=== PATIENT | female | born 1930 | race Caucasian/White ===

== ENCOUNTER → 2016-12-29 | Outpatient (CLI) | payer MEDICARE, OTHER ==
[~2016-12-29] MED LIST: ASPIR 8181 MG PO; CALCIUM 600 +1 EAC4 PO; CHEWABLE MULTI1 EACH PO; CPAP; DITROPAN5 MG PO; FEOSOL325 MG PO; LOPRESSOR25 MG PO; MONOPRIL10 MG PO; NITROSTAT0.4 MG SL; PENICILLIN V P250 MG PO; PLAVIX75 MG PO; PRESERVISION A1 EAC2 PO; PROTONIX40 MG PO; SPIRIVA18 MCG INH; VITAMIN D1000 UNI1 PO; VYTORIN 10-401 EACH PO
== END | disposition disaster alternative care site (69) ==
LOC: LNHI 16:37
DX: I10 Essential (primary) hypertension (principal); I25.10 Atherosclerotic heart disease of native coronary artery without angina pectoris; I50.32 Chronic diastolic (congestive) heart failure; I48.1 Persistent atrial fibrillation

== ENCOUNTER → 2017-03-28 | Outpatient (CLI) | payer MEDICARE, OTHER ==
--- NOTE | ~2017-03-28 | ESTC ---
Cardiac Perfusion Imaging Demographics Patient Name ALLYSON Diaz Gender Female Patient Number [id number] Race Visit Number [id number] [place] [id number] Room Number Accession Number [id number] Height 61 inches Date of 1930 Weight 168 pounds MD Monika Vaca MD Interpreting VANNESSA - Vanessa Date of study 03/28/2017 Physician Manuelito Starks MD Supervising /MLP Moniak Baldwin NM Technologist Shira Vaca MD Ordering Physician Monika Vaca MD prior authorization technician Stress ECG Reading Monika Baldwin Nurse Mike Vaca MD knotter Procedure Type: Nuclear Stress Test:Cardiolite Stress Test Procedure Start time: 03/28/2017 09:40 Indications: Dyspnea with exertion. Risk Factors The patient risk factors include:prior PCI on 12/10/2014;obesity. Conclusions Impression ECG portion of lexiscan stress test is clinically negative for ischemia by diagnostic criteria. Myocardial perfusion imaging is essentially normal. The mild anterior wall perfusion defect is likely secondary to breast tissue attenuation. Clinical correlation recommended. Overall left ventricular systolic function was normal without regional wall motion abnormalities. TID ratio is 0.96 and LVEF is 80%. Stress Protocols Resting ECG SR with PVCs Pre-stress physical exam: Patient assessed by Dr Frank prior to testing. Stress Protocol:Pharmacologic Predicted HR: 132 bpm ECG Findings No ECG changes suggestive of ischemia. Arrhythmias No new rhythm abnormality. Symptoms Shortness of breath. Stress Interpretation Appropriate hemodynamic response to Lexiscan. No significant ST-T wave changes with Lexiscan. ECG portion is negative for ischemia by diagnostic criteria. Imaging Results Applied corrections - Motion correction applied High risk findings Summed scores - Summed stress score: 8 - Summed rest score: 2 - Summed difference score: 6 Stress ejection Ejection fraction:80 % EDV :121 ml ESV :24 ml Stroke volume :97 ml LV mass :149 gr Imaging Protocols Rest Stress Isotope:Tc99m Sestamibi IV Isotope: Tc99m Sestamibi IV Isotope dose:13.2 mCi Isotope dose:39.3 mCi Date:03/28/2017 07:50 Date:03/28/2017 09:58 Technique: SPECT Technique: Gated Supine SPECT Supine Procedure Medications - Regadenoson (Lexiscan) 0.4 mg IV over 10-15 sec. I.V. 0.4 mg. Medications administered per verbal order and read back to physician prior to administration. Medical History Admission Data Admission date: 03/28/2017 Admission Time: 07:29 Hospital Status: Outpatient. Signatures dtt: ENRIQUE DO dtd: 03/28/17 0940 Physician Self Edit
== END | disposition disaster alternative care site (69) ==
LOC: GRAD 07:29
DX: R06.09 Other forms of dyspnea (principal); I50.32 Chronic diastolic (congestive) heart failure; I48.1 Persistent atrial fibrillation; E66.9 Obesity, unspecified; I25.10 Atherosclerotic heart disease of native coronary artery without angina pectoris; I10 Essential (primary) hypertension; E78.5 Hyperlipidemia, unspecified; F17.210 Nicotine dependence, cigarettes, uncomplicated; Z88.8 Allergy status to other drugs, medicaments and biological substances; Z79.82 Long term (current) use of aspirin; Z79.899 Other long term (current) drug therapy
CPT/HCPCS: A9500; J2785